=== PATIENT | male | born 1955 | race Caucasian/White ===

== ENCOUNTER 2017-10-03 15:09 | Inpatient (IN) | payer OTHER ==
[~2017-10-03] VITALS: Ht 182.9 cm; Wt 91.5 kg
[2017-10-03 15:49] LABS: BASOPHILS # (AUTO) 0.01 x10^3/uL (0-0.1); BASOPHILS % (AUTO) 0 % (0-1); EOSINOPHILS # (AUTO) 0.06 x10^3/uL (0-0.4); EOSINOPHILS % (AUTO) 1 % (1-7); LYMPHOCYTES # (AUTO) 1.36 x10^3/uL (1-3.4); LYMPHOCYTES % (AUTO) 20 % (22-44); MD NO; MEAN CORPUSCULAR HEMOGLOBIN 30.4 pg (27.5-34.5); MEAN CORPUSCULAR HGB CONC 33.2 g/dL (33.2-36.2); MEAN CORPUSCULAR VOLUME 91.8 fL (81-97); MEAN PLATELET VOLUME 7.8 fL (7.4-10.4); MONOCYTES # (AUTO) 0.61 x10^3/uL (0.2-0.8); MONOCYTES % (AUTO) 9 % (2-9); NEUTROPHILS # (AUTO) 4.67 x10^3/uL (1.8-6.8); NEUTROPHILS % (AUTO) 70 % (42-75); PLATELET COUNT 322 x10^3/uL (130-400); RED BLOOD COUNT 5.04 x10^6/uL (4.38-5.82); RED CELL DISTRIBUTION WIDTH 13.3 % (9.4-14.8)
[2017-10-03 15:52] LABS: INTERNATIONAL NORMALIZED RATIO 1.03 (0.93-1.1); PROTHROMBIN TIME 10.6 Seconds (9.6-11.5)
[2017-10-03 15:57] LABS: ANION GAP 7 mmol/L (5-15); CALCIUM 9.1 mg/dL (8.5-10.1); CHLORIDE 107 mmol/L (98-107); CREATININE 0.92 mg/dL (0.7-1.3)
[2017-10-03] MEDS ORDERED: FENTANYL PF 100 MCG/2ML ONE ×2 (16:23→16:44)
[2017-10-03] MEDS ORDERED: TICAGRELOR 90 MG TABLET ONE (16:23)
[2017-10-03] MEDS ORDERED: VERAPAMIL 2.5 MG/ML, 2ML ONE (16:23)
[2017-10-03] MEDS ORDERED: BIVALIRUDIN 250 MG ONE ×2 (16:24→17:13)
[2017-10-03] MEDS ORDERED: MIDAZOLAM 1 MG/ML, 2ML ONE ×2 (16:24→16:44)
[2017-10-03] MEDS ORDERED: HEPARIN 1,000 UNITS/ML, 10ML ONE (16:24)
[2017-10-03] MEDS ORDERED: LIDOCAINE 2%, 20ML ONE (16:24)
[2017-10-03] MEDS ORDERED: ASPIRIN 325 MG TABLET EC ONE (17:07)
[2017-10-03] MEDS ORDERED: FINA5TAB4 PO (17:25)
[2017-10-03] MEDS ORDERED: TAMS0.4C2 PO (17:25)
[2017-10-03 17:28] VITALS: BP 108/67
[2017-10-03] MEDS ORDERED: BIVALIRUDIN 250 MG in DEXTROSE 5% 50 ML IV SCH (17:30)
[2017-10-03] MEDS ORDERED: ACETAMINOPHEN 325 MG TABLET PO PRN ×2 (17:30→18:00)
[2017-10-03] MEDS ORDERED: BISACODYL 5 MG EC TABLET PO PRN (18:00)
[2017-10-03] MEDS ORDERED: ONDANSETRON 2MG/ML, 2ML IVPush PRN (18:00)
[2017-10-03] MEDS: METOPROLOL TARTRATE 25 MG TABLET PO SCH (18:22)
[2017-10-03 20:06] VITALS: BP 112/72
[2017-10-03] MEDS: ATORVASTATIN 80 MG TABLET PO SCH (20:55)
[2017-10-03] MEDS: TICAGRELOR 90 MG TABLET PO SCH (20:55)
[2017-10-03] MEDS ORDERED: ZOLPIDEM 5MG TABLET PO PRN (21:00)
[2017-10-04 00:42] VITALS: BP 103/70
[2017-10-04 05:12] VITALS: BP 101/63
[2017-10-04] MEDS: METOPROLOL TARTRATE 25 MG TABLET PO SCH ×2 (05:25→17:23)
[2017-10-04 05:49] LABS: ALBUMIN 3.5 g/dL (3.4-5.0); ANION GAP 8 mmol/L (5-15); CALCIUM 8.5 mg/dL (8.5-10.1); CHLORIDE 107 mmol/L (98-107); CREATININE 0.93 mg/dL (0.7-1.3)
[2017-10-04 08:10] VITALS: BP 111/65
[2017-10-04] MEDS ORDERED: FINASTERIDE 5 MG TABLET ONE (09:07)
[2017-10-04] MEDS: TICAGRELOR 90 MG TABLET PO SCH ×2 (09:11→20:51)
[2017-10-04] MEDS: TAMSULOSIN 0.4 MG CAP.ER.24H PO SCH (09:12)
[2017-10-04] MEDS: ASPIRIN 81 MG TABLET EC PO SCH (09:12)
[2017-10-04 14:04] VITALS: BP 122/64
[2017-10-04 19:08] VITALS: BP 107/68
[2017-10-04] MEDS: ATORVASTATIN 80 MG TABLET PO SCH (20:51)
[2017-10-05 04:00] VITALS: BP 108/62
[2017-10-05] MEDS: METOPROLOL TARTRATE 25 MG TABLET PO SCH (05:20)
[2017-10-05 06:54] VITALS: BP 106/69
[2017-10-05] MEDS: ASPIRIN 81 MG TABLET EC PO SCH (08:38)
[2017-10-05] MEDS: TICAGRELOR 90 MG TABLET PO SCH (08:38)
[2017-10-05] MEDS: TAMSULOSIN 0.4 MG CAP.ER.24H PO SCH (08:38)
[2017-10-05] MEDS ORDERED: METO25TA91 PO (08:42)
[2017-10-05] MEDS ORDERED: ASPI-621 PO (08:42)
[2017-10-05] MEDS ORDERED: TICA90TA PO (08:42)
[2017-10-05] MEDS ORDERED: ATOR-2 PO (08:42)
[2017-10-05] MEDS ORDERED: FINASTERIDE 5 MG TABLET PO SCH (09:00)
== END 2017-10-05 10:59 | disposition home or self-care (01) | DRG 247 ==
LOC: ED 16:10 → EDIP 16:11 → ED 17:02 → 5SO 17:21
PROVIDERS: ADMIT Internal Medicine Cardiovascular Disease; ATTEND Internal Medicine Cardiovascular Disease
PROC: 027034Z Dilation of Coronary Artery, One Artery with Drug-eluting Intraluminal Device, Percutaneous Approach (ICD-10-PCS; principal; 2017-10-03)
PROC: 4A023N7 Measurement of Cardiac Sampling and Pressure, Left Heart, Percutaneous Approach (ICD-10-PCS; 2017-10-03)
PROC: B2111ZZ Fluoroscopy of Multiple Coronary Arteries using Low Osmolar Contrast (ICD-10-PCS; 2017-10-03)
PROC: B2151ZZ Fluoroscopy of Left Heart using Low Osmolar Contrast (ICD-10-PCS; 2017-10-03)
DX: I21.4 Non-ST elevation (NSTEMI) myocardial infarction (principal); E78.5 Hyperlipidemia, unspecified; I10 Essential (primary) hypertension; I25.10 Atherosclerotic heart disease of native coronary artery without angina pectoris; I25.5 Ischemic cardiomyopathy; K21.9 Gastro-esophageal reflux disease without esophagitis; N40.0 Benign prostatic hyperplasia without lower urinary tract symptoms; Z87.891 Personal history of nicotine dependence
CPT/HCPCS: 36415; 80048; 82040; 84484; 85014; 85018; 85025; 85610; 85730; 93005; 93458; 99156; 99157; 99285; C1769; C1894; J0583; J1644; J2250; J3010; J3490; C1725; C1874; C1887; Q9967

== ENCOUNTER → 2017-10-31 | Outpatient (CLI) | payer OTHER ==
[~2017-10-31] MED LIST: ASPI-621 PO; ATOR-2 PO; FINA5TAB4 PO; METO25TA91 PO; TAMS0.4C2 PO; TICA90TA PO
== END | disposition home or self-care (01) ==
LOC: MERGE 09:34 → CFH 09:34 → EDBD 10:00
PROVIDERS: ATTEND Internal Medicine Cardiovascular Disease
DX: I25.10 Atherosclerotic heart disease of native coronary artery without angina pectoris (principal)
CPT/HCPCS: 93306

== ENCOUNTER → 2020-01-13 | Outpatient (CLI) | payer OTHER ==
[~2020-01-13] MED LIST changes: -ASPI-621 PO; +ASPI81TA45 PO
== END | disposition home or self-care (01) ==
LOC: CFH 10:22
PROVIDERS: ATTEND Internal Medicine Cardiovascular Disease
DX: I37.1 Nonrheumatic pulmonary valve insufficiency (principal); E78.5 Hyperlipidemia, unspecified; I25.2 Old myocardial infarction; I25.10 Atherosclerotic heart disease of native coronary artery without angina pectoris; I10 Essential (primary) hypertension
CPT/HCPCS: 78452; 93017; 93306; A9502